=== PATIENT | female | born 1945 | race Hispanic/Latino ===

== ENCOUNTER 2025-08-20 12:57 | Outpatient (CLI) | payer MEDICARE, BC | END 2025-08-20 12:58 | disposition home or self-care (01) | LOC: SCSBT 12:57 | PROVIDERS: ATTEND Family Medicine | DX: Z13.820 Encounter for screening for osteoporosis (principal); M81.0 Age-related osteoporosis without current pathological fracture | CPT/HCPCS: 77080 ==